=== PATIENT | male | born 2000 | race African-American/Black ===

== ENCOUNTER 2021-01-20 12:31 | Emergency (ER) | payer OTHER ==
[~2021-01-20] VITALS: Ht 190.5 cm; Wt 100.7 kg
--- NOTE | 2021-01-20 12:37 | NUR ---
triage: patient arrives with painful urination that began yesterday and 5/10 pain at meatus.
[2021-01-20 13:13] LABS: MICROSCOPIC INDICATED
[2021-01-20] MEDS ORDERED: ACETAMINOPHEN 500 MG TABLET ONE (13:54)
[2021-01-20] MEDS ORDERED: ACETAMINOPHEN 500 MG TABLET PO ONE (14:00)
[2021-01-20] MEDS ORDERED: CEFTRIAXONE 250 MG ONE (14:11)
[2021-01-20] MEDS ORDERED: AZITHROMYCIN 250 MG TABLET ONE (14:11)
[2021-01-20 14:22] VITALS: BP 144/88
--- NOTE | 2021-01-20 14:23 | NUR ---
Patient given discharge instructions and prescriptions and they have confirmed that they understand the instructions. Patient stable and ambulatory with steady gait from ED.
[2021-01-20] MEDS ORDERED: AZITHROMYCIN 500 MG TABLET PO ONE (14:30)
[2021-01-20] MEDS ORDERED: CEFTRIAXONE 250 MG IM ONE (14:30)
== END 2021-01-20 14:26 | disposition home or self-care (01) ==
LOC: ED 13:46
DX: N30.00 Acute cystitis without hematuria (principal); R30.0 Dysuria
CPT/HCPCS: 81001; 87086; 96372; 99283; J0696